=== PATIENT | female | born 1950 | race Caucasian/White ===

== ENCOUNTER 2017-10-19 00:21 | Inpatient (IN) | payer OTHER, BC ==
[2017-10-19] VITALS (7 sets, daily range): BP systolic 128–179; BP diastolic 58–81
[~2017-10-19] VITALS: Ht 160 cm; Wt 68.9 kg
--- NOTE | ~2017-10-19 | EKG ---
[place] [address] [facility] [place] [address] ELECTROCARDIOGRAM REPORT Name: DONI ASH Room #: 432-P ADM IN M.R.#: [id number] Admission: 10/19/17 Attend Phys: Karl Rocha MD Discharge: Date of : 50 Report #: [id number] THIS REPORT FOR: //name// [facility] ED Test Date: 2017-10-19 Test Time: 00:36:01 Pat Name: DONI ASH Department: Room: Gender: F [employer]: EDWIN : 1950 Requested By: Devan Vyas Order Number: [id number] MD: Aj Noe Measurements Intervals [place]ila Rate: 102 P: 42 AK: 192 QRS: 117 QRSD: 97 T: 8 QT: 363 QTc: 473 Interpretive Statements Sinus tachycardia Right axis deviation No previous ECG available for comparison Electronically Signed On 10-19-2017 7:37:53 CDT by Aj Noe [email or web address] <ELECTRONICALLY SIGNED> By: Aj Noe MD, [facility] 10/19/17 0737 0036 0036 Aj Noe MD, FACC /EPI
--- NOTE | ~2017-10-19 | HC ---
[facility] [place] [address] CONSULTATION Name: DONI ASH Room #: 432-P ADM IN M.R.#: [id number] Admission: 10/19/17 Attend Phys: Karl Rocha MD Discharge: Date of : 50 Report #: [id number] THIS REPORT FOR: //name// CC: Karl NINA [place] Physician staff DATE OF SERVICE: 10/19/2017 HISTORY OF PRESENT ILLNESS: This is a 67-year-old female patient who was evaluated by me for the new-onset seizure. This patient is visiting in [place] and she actually lives in [place]. She went to sleep around 11:00 and then noticed that her arms were up, but there was some foaming at the mouth. She never saw the pulse and they did CPR, but there is no documentation that she ever lost a pulse. REVIEW OF SYSTEMS: Indicate that she has been diagnosed with sleep apnea. She was asked to take a CPAP on a regular basis. She does not use CPAP because she does not like it. She apparently had 3 sleep studies. She does not know how low her oxygen goes. The history of seizure is not totally clear here either. She never had seizure before. She feels back to her normal self. She does have other etiology like hypertension because she has missed her medication. She does have a history of ischemic bowel disease. She does have a history of degenerative joint disease and restless leg syndrome. It is not clear how bad is her restless leg syndrome. I carried out the 14-point review of system in this patient and that was her relevant 14-point review of system. She is not having any new eye, ENT, cardiac, respiratory, GI, , musculoskeletal, constitutional, dermatological, hematological, psychiatric, throat, allergic symptom associated with present symptomatology. PAST MEDICAL HISTORY: Negative for seizure. FAMILY HISTORY: Negative for any early age seizures or strokes. SOCIAL HISTORY: She does drink alcohol once a while. She did not drink any alcohol the night before. She does not smoke. PHYSICAL EXAMINATION: NEUROLOGICAL: Indicate she is alert, responsive, oriented, able to follow simple and complex command. Her speech, concentration, fund of knowledge and memory is at her baseline. Cranial nerve examination 2 through 12 looks unremarkable. She has symmetrical strength, sensation, reflexes and tone in all 4 extremities. There is no cerebellar sign. There is no papilledema. NECK: There is no carotid bruit. GENERAL: She is reasonably well-developed individual who does not have any dysmorphic features of eyes, [place] [address] CONSULTATION Name: DONI ASH Room #: 432-P [facility] IN M.R.#: [id number] Admission: 10/19/17 Attend Phys: Karl Rocha MD Discharge: Date of : 50 Report #: [id number] HEENT: Her vision and hearing looks adequate. EXTREMITIES: Pulses are palpable, but she has no edema, cyanosis or jaundice. CARDIAC: Examinations appear unremarkable. LUNGS: She has no respiratory difficulty or rhonchi on either side. VITAL SIGNS: Blood pressure is 142/67, respirations 18, pulse is 79 and temperature is 98.5. LABORATORY DATA: Her white count was normal. Her sodium was normal. Calcium is somewhat low and magnesium was okay and TSH was okay. RADIOLOGICAL DATA: She did have a CT scan of the head and MRI and they were both reviewed and they were both unremarkable. IMPRESSION: 1. Sleep related seizure. I think she needs further workup and we need to see if she had an oxygen desaturation or some other problem because of her uncontrolled hypertension, which caused a seizure. I discussed all our options with her. I discussed the option of going on medications or staying without medication and get the workup done. She wants to stay off the medication and would like to get the workup done and after discussing all of her problem, the plan is the following. RECOMMENDATIONS: 1. We will get an EEG done. 2. If EEG is normal, she will call her sleep physician from here and get an appointment with him as soon as possible. I will suggest they do another sleep study with seizure montages to look for any seizure activity. In the meantime, the patient should take all the seizure precautions. I discussed all of them with her. I told her she cannot drive and that she cannot drive until she is released by her physicians depending upon [place] Law, which I am not aware of. She is agreeable with this plan. If her EEG is okay, she can go back to [place], but cannot drive. She should stay and will keep an eye on her when she is sleeping to make sure there is no seizure and if seizures occur, then he will call 911, but they must call her sleep doctor from now and get an appointment, so they can get as soon as possible and it must be as soon as possible and hopefully tomorrow or at the most day after. By: [id number] [id number] Alexandro Montano MD /nickolas
--- NOTE | ~2017-10-19 | EEG ---
[facility] [address] [place] [address] ELECTROENCEPHALOGRAM Name: DONI ASH Room #: 432-P ADM IN M.R.#: [id number] Admission: 10/19/17 Attend Phys: Karl Rocha MD Discharge: Date of : 50 Report #: [id number] THIS REPORT FOR: //name// CC: Karl NINA [place] Physician staff DATE OF SERVICE: 10/19/2017 This patient is being evaluated for seizures. EEG was done by placing the electrode by standard 10-20 system of electrode placement. Both referential and sequential montages were used for recording. Background activity in this patient's EEG is about 11 Hz and 40 microvolt. Large portion of this EEG was obtained when the patient was asleep and that is associated with bilaterally symmetrical sleep spindle and vertex sharp waves. Photic stimulation was unremarkable. Throughout the record, no active epileptiform activity was noticed. IMPRESSION: This patient's EEG is within normal limit. Thank you very much for this referral. By: 1849 [id number] Alexandro Montano MD /nt
[2017-10-19] MEDS ORDERED: SYNTHROID50 MCG PO (00:47)
[2017-10-19] MEDS ORDERED: BYSTOLIC 5 MG5 M1 PO (00:48)
[2017-10-19] MEDS ORDERED: NORVASC5 MG PO (00:48)
[2017-10-19] MEDS ORDERED: PRILOSEC 20 MG20 MG PO (00:49)
[2017-10-19] MEDS ORDERED: XARELTO20 MG PO (00:49)
[2017-10-19] MEDS ORDERED: NORCO 5-325 TA1 EACH PO (00:49)
[2017-10-19 00:51] LABS: ABSOLUTE NEUTROPHILS 5.1 thou/uL (1.4-8.2); BASOPHILS 0.2 % (0.0-2.0); EOSINOPHILS 0.7 % (0.0-3.0); HEMATOCRIT 36.8 % (37.0-47.0); HEMOGLOBIN 12.4 gm/dL (12.0-15.0); LYMPHOCYTES 46.1 % (24.0-44.0); MCH 30.3 pg (26.0-34.0); MCHC 33.7 g/dL (28.0-37.0); MCV 89.9 fL (80.0-100.0); MONOCYTES 6.5 % (1.0-8.0); PLATELET COUNT 305 thou/uL (150-400); POLYS 46.5 % (36.0-66.0); RBC 4.09 mil/uL (4.20-5.00); RDW 15.4 % (10.5-14.5)
[2017-10-19] MEDS ORDERED: MIRAPEX0.25 MG PO (00:51)
[2017-10-19] MEDS ORDERED: VITAMIN D1000 UNI1 PO (00:51)
[2017-10-19] MEDS ORDERED: FOLIC ACID1 MG PO (00:51)
[2017-10-19 00:59] LABS: ANION GAP 11 mmol/L (7-16); BUN 11 mg/dL (7-18); CALCIUM 8.3 mg/dL (8.5-10.1); CHLORIDE 107 mmol/L (98-107); CO2 25 mmol/L (21-32); CREATININE 1.1 mg/dL (0.6-1.0); GLUCOSE 118 mg/dL (74-106); POTASSIUM 3.1 mmol/L (3.5-5.1); SODIUM 143 mmol/L (136-145)
[2017-10-19 01:08] LABS: ALBUMIN 3.2 g/dL (3.4-5.0); MAGNESIUM 1.8 mg/dL (1.8-2.4); SGOT 34 U/L (15-37); SGPT 42 U/L (30-65); TOTAL BILIRUBIN 0.4 mg/dL (<0.1-1.0); TOTAL PROTEIN 6.7 g/dL (6.4-8.2); TROPONIN-I <0.06 ng/mL (<0.06)
[2017-10-19 01:10] LABS: URINE BILIRUBIN NEGATIVE (Negative); URINE BLOOD 1+ (Negative); URINE CLARITY CLEAR; URINE COLOR YELLOW; URINE GLUCOSE-RANDOM* NEGATIVE (Negative); URINE KETONES NEGATIVE (Negative); URINE LEUKOCYTES-REFLEX NEGATIVE (Negative); URINE NITRITE-REFLEX NEGATIVE (Negative); URINE PROTEIN (DIPSTICK) TRACE (Negative); URINE SPECIFIC GRAVITY >= 1.030 (1.005-1.035); URINE UROBILINOGEN 0.2 E.U./dl (0.2-1.0)
[2017-10-19 01:21] LABS: AMP/METHAMP Negative (Negative); BARBITURATES Negative (Negative); BENZODIAZEPINES Negative (Negative); COCAINE Negative (Negative); METHADONE Negative (Negative); OPIATES POSITIVE (Negative); PCP Negative (Negative)
[2017-10-19 01:32] LABS: CALCIUM OXALATE 0-3 Few /LPF (None Seen); HYALINE CASTS 0-3 Few /LPF (None Seen); SQUAMOUS 4-10 Moderate /LPF (0-3)
[2017-10-19 01:33] LABS: URINE RBC 3-10 Few /HPF (0-2); URINE WBC-REFLEX 0-5 Rare /HPF (0-5)
[2017-10-19 07:48] LABS: URINE BILIRUBIN NEGATIVE (Negative); URINE BLOOD NEGATIVE (Negative); URINE CLARITY CLEAR; URINE COLOR YELLOW; URINE GLUCOSE-RANDOM* NEGATIVE (Negative); URINE KETONES NEGATIVE (Negative); URINE LEUKOCYTES-REFLEX NEGATIVE (Negative); URINE NITRITE-REFLEX NEGATIVE (Negative); URINE PROTEIN (DIPSTICK) NEGATIVE (Negative); URINE UROBILINOGEN 0.2 E.U./dl (0.2-1.0)
[2017-10-20 04:33] VITALS: BP 120/61
[2017-10-20 06:21] LABS: HEMATOCRIT 34.2 % (37.0-47.0); HEMOGLOBIN 11.4 gm/dL (12.0-15.0); MCH 30.1 pg (26.0-34.0); MCHC 33.5 g/dL (28.0-37.0); RBC 3.8 mil/uL (4.20-5.00); RDW 15.5 % (10.5-14.5); WBC 7.5 thou/uL (4.0-11.0)
[2017-10-20 06:32] LABS: CALCIUM 7.4 mg/dL (8.5-10.1); CREATININE 0.7 mg/dL (0.6-1.0); POTASSIUM 3.5 mmol/L (3.5-5.1)
[2017-10-20 08:10] VITALS: BP 153/78
[2017-10-20 12:32] VITALS: BP 153/78
== END 2017-10-20 12:53 | disposition home or self-care (01) | DRG 100 ==
LOC: ER 00:21 → EROBS 02:26 → 4E 02:26
PROVIDERS: Emergency Medicine; Nurse Practitioner Family
DX: R56.9 Unspecified convulsions (principal); N17.0 Acute kidney failure with tubular necrosis; I10 Essential (primary) hypertension; M06.9 Rheumatoid arthritis, unspecified; E78.5 Hyperlipidemia, unspecified; E87.6 Hypokalemia; E03.9 Hypothyroidism, unspecified; K21.9 Gastro-esophageal reflux disease without esophagitis; M19.90 Unspecified osteoarthritis, unspecified site; G25.81 Restless legs syndrome; G47.33 Obstructive sleep apnea (adult) (pediatric); Z88.0 Allergy status to penicillin; Z88.2 Allergy status to sulfonamides; Z79.899 Other long term (current) drug therapy
CPT/HCPCS: 10183